=== PATIENT | male | born 1980 | race Caucasian/White ===

== ENCOUNTER 2018-08-17 22:38 | Emergency (ER) | payer SELFPAY ==
[~2018-08-17] VITALS: Ht 180.3 cm; Wt 79.4 kg
[2018-08-17 22:52] VITALS: BP 139/90
--- NOTE | 2018-08-17 22:55 | NUR ---
TO LOBBY A/W BED AMBULATORY
--- NOTE | 2018-08-17 23:45 | NUR ---
PT AMBULATED TO BED 3
--- NOTE | 2018-08-18 | NUR ---
Dr. Crenshaw examining patient.
[2018-08-18] MEDS ORDERED: DICYCLOMINE 20 MG/2 ML VIAL IM ONE (00:10)
--- NOTE | 2018-08-18 00:50 | NUR ---
PT TO ED WITH C/O GENRELZIED LOWER ABD PAIN X 8 HRS. PT DENIES N/V/D BUT REPORTING CONSTIPATION. PER PT "I TRIED A FEW LAXITIVES AND A TEA BUT NOTHING WORKED" ABD IS SOFT WITH NO DISTENTION NOTED. PT PLACED INTO BED, PENDING MD RESENDIZ.
[2018-08-18 02:26] VITALS: BP 137/84
--- NOTE | 2018-08-18 02:27 | NUR ---
Patient discharged with v/s stable. Written and verbal after care instructions given and explained. Patient alert, oriented and verbalized understanding of instructions. Ambulatory with steady gait. All questions addressed prior to discharge. ID band removed. Patient advised to follow up with PMD. Rx of BENTYL, MIRALAX given. Patient educated on indication of medication including possible reaction and side effects. Opportunity to ask questions provided and answered.
== END 2018-08-18 02:27 | disposition home or self-care (01) ==
LOC: MED 22:38
DX: R10.30 Lower abdominal pain, unspecified (principal); R30.0 Dysuria; Z90.49 Acquired absence of other specified parts of digestive tract
CPT/HCPCS: 74018; 96372; 99283; J0500